=== PATIENT | female | born 1995 | race Caucasian/White ===

== ENCOUNTER 2019-11-12 19:20 | Emergency (ER) | payer BC ==
[~2019-11-12] VITALS: Ht 165.1 cm; Wt 68.0 kg
[2019-11-12 19:27] VITALS: Ht 165.1 cm; Wt 68.0 kg
[2019-11-12 21:22] VITALS: BP 132/71
== END 2019-11-12 21:22 | disposition home or self-care (01) ==
LOC: ED 19:20
DX: I82.411 Acute embolism and thrombosis of right femoral vein (principal); I82.431 Acute embolism and thrombosis of right popliteal vein
CPT/HCPCS: J1650; Q0092

== ENCOUNTER 2019-11-13 23:16 | Emergency (ER) | payer BC ==
[~2019-11-13] VITALS: Ht 152.4 cm; Wt 68.0 kg
[2019-11-13 23:24] VITALS: Ht 152.4 cm; Wt 68.0 kg
[2019-11-14 00:12] VITALS: BP 134/71
== END 2019-11-14 00:12 | disposition home or self-care (01) ==
LOC: ED 23:16
DX: I82.401 Acute embolism and thrombosis of unspecified deep veins of right lower extremity (principal); J45.909 Unspecified asthma, uncomplicated; M19.90 Unspecified osteoarthritis, unspecified site